=== PATIENT | male | born 1985 | race Caucasian/White ===

== ENCOUNTER 2018-04-02 16:50 | Emergency (ER) | payer OTHER ==
[2018-04-02 17:02] VITALS: BP 145/90; PULSE 90; TEMP 98.2; BMI 33.7
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
== END 2018-04-02 18:42 | disposition home or self-care (01) ==
LOC: FER 16:50
DX: R22.42 Localized swelling, mass and lump, left lower limb (principal); I10 Essential (primary) hypertension
CPT/HCPCS: 93971-TC; 99281-25